=== PATIENT | female | born 1990 | race Caucasian/White ===

== ENCOUNTER 2018-02-05 12:02 | Outpatient (REF) | payer MEDICAID, SELFPAY ==
[2018-02-05 13:49] LABS: Bilirubin Negative (Negative); Blood Negative (Negative); Clarity Clear; Glucose Negative (Negative); Ketones Negative (Negative); Leukocyte Esterase Trace (Negative); Nitrite Negative (Negative); Urobilinogen 0.2 EU/dL (Up TO 0.2)
[2018-02-05 13:56] LABS: Bacteria Rare HPF (Negative); Epithelial Cells Few HPF (Negative); Other Cells Rare Transitional (Negative); RBC 0-2 (0-2)
[2018-02-05 13:57] LABS: C & S Indicated? No/Sq. Contamination; Casts Negative LPF (Negative); Crystals Negative HPF (Negative); Mucus Negative (Negative)
== END 2018-02-05 12:22 ==
LOC: LBN 12:02
DX: L30.1 Dyshidrosis [pompholyx] (principal)
CPT/HCPCS: 81003; 81015

== ENCOUNTER 2018-09-13 13:47 | Outpatient (REF) | payer MEDICAID, SELFPAY ==
--- NOTE | 2018-09-13 13:00 | PAPFT_PTH ---
PATIENT: Jessica Robertson LOC: N U#:[id number] AGE/SX: 27/F ROOM: RE09/13/[address]: YOLANDA Jerry : 1990 BED: DIS: 09/13/2018 SPEC #: [id number] RECD: 09/13/18 18:20 STATUS: RAJAT REVíctor #: [id number] LORE: 09/13/18 13:[address]: Irais Jj DEPT: [facility] Cytology RECD BY: Joleen Blanchard ENTERED: 09/13/18 18:20 SP TYPE: PAPFT MALLORY DR: Dalila Tinoco APRN Tissues: 1 - CX/ENDOCX FOR PAP SMEARS Procedures: PAP THIN PREP/UVM Screening Comments: [id number]
== END 2018-09-13 14:07 ==
LOC: LBN 13:47
PROVIDERS: Visit Provider Nurse Practitioner Family
DX: Z12.4 Encounter for screening for malignant neoplasm of cervix (principal)
CPT/HCPCS: 88142

== ENCOUNTER 2019-07-29 12:01 | Outpatient (CLI) | payer MEDICAID, SELFPAY ==
[2019-07-29 10:31] LABS: HCT 39.3 % (36.0-46.0); HGB 13.1 g/dL (12.0-15.5); Mean Corp. HGB Concentration 33.3 g/dL (32.0-36.0); Mean Corpuscular Hemoglobin 29.7 pg (27.0-33.0); Mean Corpuscular Volume 89.1 fL (80-95); Mean Platelet Volume 10.1 fL (8.0-11.0); Platelet Count 346 x1000/uL (130-400); RBC 4.41 m/cumm (4.00-5.20); RBC Distribution Width 12.5 % (11.7-14.6); White Blood Cell Count 5.15 k/cumm (4.4-10.8)
== END 2019-07-29 12:21 ==
PROVIDERS: Visit Provider Obstetrics & Gynecology
DX: Z30.2 Encounter for sterilization (principal); Z01.818 Encounter for other preprocedural examination; Z01.812 Encounter for preprocedural laboratory examination
CPT/HCPCS: 36415; 85027; 86850; 86900; 86901

== ENCOUNTER 2019-07-30 07:22 | Day surgery (SDC) | payer MEDICAID, SELFPAY ==
--- NOTE | 2019-07-29 21:13 | PDOC.ANES ---
Date of service: 07/29/19 Time of Service: 21:13 Anesthesia Note Report Anesthesia Note: Called to speak with Jessica in regards to possibly rescheduling her elective surgery. We discussed the ongoing martinez virus pandemic and steps we are taking at the hospital. This includes no visitor or support person will be allowed to stay in the hospital with her, and that the risk of being exposed or exposing others to the martinez virus although thought to be low is unknown. We discussed that if she did contract the martinez virus, her illness would likely be mild, although it could be life threatening. She verbalized understanding the risk and would like to proceed with surgery as scheduled.
[2019-07-30 07:33] VITALS: BP 109/68; PULSE 69; RESP 16; TEMP 37; O2SAT 97
== END 2019-07-30 07:42 ==
PROVIDERS: Visit Provider Obstetrics & Gynecology
DX: R69 Illness, unspecified (principal); Y66 Nonadministration of surgical and medical care

== ENCOUNTER 2019-10-03 03:05 | Outpatient (CLI) | payer MEDICAID, SELFPAY ==
[2019-10-03 13:32] LABS: HCT 35.9 % (36.0-46.0); Mean Corp. HGB Concentration 33.4 g/dL (32.0-36.0); Mean Corpuscular Hemoglobin 29.9 pg (27.0-33.0); Mean Corpuscular Volume 89.5 fL (80-95); Mean Platelet Volume 10.4 fL (8.0-11.0); Platelet Count 317 x1000/uL (130-400); RBC 4.01 m/cumm (4.00-5.20); RBC Distribution Width 12.3 % (11.7-14.6); White Blood Cell Count 5.41 k/cumm (4.4-10.8)
== END 2019-10-03 03:25 ==
PROVIDERS: Visit Provider Obstetrics & Gynecology
DX: Z30.2 Encounter for sterilization (principal); Z01.818 Encounter for other preprocedural examination; Z01.812 Encounter for preprocedural laboratory examination
CPT/HCPCS: 36415; 85027; 86850; 86900; 86901

== ENCOUNTER 2019-10-06 09:11 | Outpatient (CLI) | payer MEDICAID, SELFPAY ==
[2019-10-07 03:26] LABS: COVID-19 RT-PCR UVMMC Result Negative (Negative)
== END 2019-10-06 09:31 ==
PROVIDERS: Visit Provider Obstetrics & Gynecology
DX: Z11.59 Encounter for screening for other viral diseases (principal)
CPT/HCPCS: U0003

== ENCOUNTER 2019-10-09 06:11 | Day surgery (SDC) | payer MEDICAID, SELFPAY ==
[2019-10-09] VITALS (7 sets, daily range): BP systolic 84–113; BP diastolic 40–73; PULSE 62–74; RESP 16–20; TEMP 36.1–36.7; O2SAT 97–100
--- NOTE | 2019-10-09 07:09 | HPE_ITS ---
Date of service: 10/09/19 Time of Service: 07:09 Assessment and Plan Assessment and plan (1) Sterilization: Status: Acute Assessment and plan: Plan to proceed with laparoscopic bilateral salpingectomy under anesthesia. Risks of surgery including hemorrhage, infection and injury to other organs such as bowel bladder were discussed with the patient. The patient was counseled on the intended irreversibility of the procedure. All questions were answered to the patient's satisfaction and consent for surgery was obtained. History of Present Illness History of Present Illness Chief Complaint: Tubal sterilization Narrative: 28-year-old G2, P2 presents today for preoperative visit. She is scheduled to undergo laparoscopic bilateral salpingectomy. She has 2 children of her own and lives in a household with 4 children that belongs to her significant other. The patient has been counseled on alternative forms of contraception. She is generally healthy but has chronic migraines and is unable to take an estrogen containing contraceptive. Review of Systems All systems reviewed & are unremarkable except as noted in HPI and below PFSH Surgical History (Updated 10/09/19 @ 06:33 by Demetria Simpson) [place] teeth extracted (Acute) Social History (Updated 11/12/18 @ 14:07 by Kunal Noonan) Smoking/Tobacco Use Status: Current every day Tobacco Type: cigarettes Years smoked: 10 Quit status: has quit before Second Hand Exposure: No Alcohol Intake: current Alcohol Intake frequency: a few times a month Alcohol type: beer Drug use: Never Substance use type: does not use Details: alcohol: t-2, 2 beers Caregiver/Support person: No Household members: family and children Housing: house current occupation: [employer] Pets and animals: Yes Pets and animals: dog(s) Sexually active: Yes Do you think of yourself as: straight/heterosexual Current gender identity: female What is your relationship status?: How often do you talk on the phone with friends or family?: three or more times per week How often do you get together with friends or relatives?: three or more times per week How often do you attend methodist or nondenominational services?: decline to answer Do you belong to any clubs or organized social groups?: no Panel score (0-1 are the most socially isolated patients): 1 What type of physical activity do you participate in: walking Duration: > 90 minutes/day Frequency: 5-6 times per week Opal/Moravian: No preference Special opal needs: No Seatbelt use: always Helmet use: Yes Helmet use: always Drive intox or ride w/intox [employer] truck driver: No Water heater temp set <120 deg: Yes Working smoke detector in home: Yes Fire extinguisher in home: Yes Carbon monox detector in home: Yes Firearms in home: No Do you feel safe at home: Yes Do you feel safe in your relationship?: Yes Victim of physical abuse: No Victim of emotional abuse: No Victim of sexual abuse: No Meds Home Medications and Allergies Home Medications Medication Instructions Recorded Confirmed Type acyclovir 400 mg PO Q8H PRN #60 tab-cap 05/18/17 10/09/19 Rx multivitamin [Daily Multiple] 1 tab PO DAILY 06/14/17 10/09/19 History norelgestromin 150 mcg-e.estradiol 1 patch TRANSDERMAL weekly #12 09/03/18 10/09/19 Rx 35 mcg/24 hr weekly transderm patch patch loratadine 10 mg tablet 10 mg PO DAILY #30 tab-cap 01/17/19 10/09/19 Rx sertraline 50 mg tablet 50 mg PO DAILY #90 tab 05/17/19 10/09/19 Rx fluticasone propionate 50 mcg NS DAILY 10/03/19 10/09/19 History montelukast [Singulair] 10 mg PO DAILY 10/03/19 10/09/19 History Allergies Allergy/AdvReac Type Severity Reaction Status Date / Time No Known Drug Allergies Allergy Verified 10/09/19 06:29 tree nut Allergy diarrhea, Verified 10/09/19 06:29 vomiting Exam Resp Auscultation: clear to auscultation bilaterally Cardio Rate: regular rate Rhythm: regular rhythm Results Last Vital Signs Temp 98.1 F 10/09/19 06:33 Pulse 74 10/09/19 06:33 Resp 16 10/09/19 06:33 BP 113/73 10/09/19 06:33 Pulse Ox 97 10/09/19 06:33 COVID-19 Screening In the past 14 days, have you traveled outside of [place] or [place]?: NO
[2019-10-09] MEDS: Lactated Ringers 1,000 ML 125 ML IV (07:15)
--- NOTE | 2019-10-09 08:00 | FALL_PTH ---
PATIENT: Jessica Robertson LOC: [facility] U#:[id number] AGE/SX: 28/F ROOM: RE10/09/[address]: Alberto Ramos MD : 1990 BED: DIS: 10/09/2019 SPEC #: [id number] RECD: 10/09/19 11:58 STATUS: RAJAT REVíctor #: [id number] LORE: 10/09/19 08:[address]: Alberto Ramos DEPT: Surgical Specimen RECD BY: Joleen Blanchard ENTERED: 10/09/19 11:58 SP TYPE: Fall OTHR DR: Dalila Tinoco APRN Tissues: 1 - FALLOPIAN TUBE (STERILIZATION) 2 - FALLOPIAN TUBE (STERILIZATION) Procedures: GROSS AND MICRO LEVEL 2 Comments: [id number]
[2019-10-09] MEDS: Bupivacaine 0.25% Pres-Free 30 ML VIAL (08:10)
--- NOTE | 2019-10-09 08:30 | W.PM.OP ---
Date of service: 10/09/19 Time of Service: 08:30 Operative Note Operative Note DATE OF PROCEDURE: 10/09/19 PRE-OP DIAGNOSIS: Multiparity and desire for permanent sterilization POST-OP DIAGNOSIS: same PROCEDURE: Laparoscopic bilateral salpingectomy SURGEON: Alberto Ramos ASSISTING SURGEON: Lillie Bates ANESTHESIA: GETA ESTIMATED BLOOD LOSS: 10 PATHOLOGY: other (Bilateral fallopian tubes) COMPLICATIONS: None Patient was transported to: PACU Patient's condition: stable Procedure Description: The patient was taken to the operating room and after general anesthesia the patient was placed in supine position. The patient was prepped and draped in usual sterile manner. The skin and subcutaneous tissues at the umbilicus were infiltrated with 0.25% Marcaine solution. A small infraumbilical skin incision was then made with a #15 blade scalpel. Sharp dissection was carried down to the underlying layer fascia. The fascia was grasped and elevated with 2 Norm clamps. The fascia was incised with a scalpel and the peritoneum was entered sharply with hemostats. 2 sutures of 0 Vicryl were placed on either side of the fascial incision. A 10 mm balloon trocar was advanced through the incision. A pneumoperitoneum to approximately 15 mmHg was established with carbon dioxide. Two 5 mm ports were placed in the right and left lower quadrants both under direct visualization. The left fallopian tube was grasped and elevated with an atraumatic grasper. Dissection was carried across the mesosalpinx with the LigaSure device. The tube was transected at its proximal end and removed from the abdomen. A similar procedure was carried out on the opposite side. Excellent hemostasis was noted. The 5 mm trochars were removed. The abdomen was desufflated. The umbilical trocar was also removed. The fascia at the umbilicus was closed with a [id number] suture of 0 Vicryl in addition to the 2 previously placed sutures. Each skin incision was closed with interrupted sutures of 4-0 Monocryl and Dermabond was applied. The procedure was concluded at this point. Sponge, lap and needle counts were correct at the completion of the procedure. The patient was transferred to PACU in stable condition.
--- NOTE | 2019-10-09 08:38 | W.PM.DSUDISC ---
Discharge Plan Disposition Patient Disposition: HOME Condition: Good Discharge Details Reason For Visit: Status post laparoscopic bilateral salpingectomy Attending Provider: Alberto Ramos Primary Care Provider: Dalila Tinoco Home Meds and New Rx's Prescriptions: New hydrocodone-acetaminophen 5-325 mg Tablet 1 tab PO Q4H PRN Qty: 20 RF: 0 Continued acyclovir 400 MG tablet 400 mg PO Q8H PRN Qty: 60 RF: 2 Xulane 150-35 mcg/24 hr patch weekly 1 patch Transdermal weekly Qty: 12 RF: 3 loratadine 10 mg tablet 10 mg PO DAILY Qty: 30 RF: 11 sertraline 50 mg tablet 50 mg PO DAILY Qty: 90 RF: 3 multivitamin [Daily Multiple] 1 EACH tablet 1 tab PO DAILY RF: 0 montelukast [Singulair] 10 mg tablet 10 mg PO DAILY RF: 0 fluticasone propionate 50 mcg/actuation spray,suspension 50 mcg NS DAILY RF: 0 Discharge Instructions Activity:: Activity as Tolerated Shower/Bathe:: 24 hours Diet:: As Tolerated Discharge Orders Discharge Orders: Discharge Order (Routine); Ordered 10/09/19 Ordered By: Alberto Ramos DS: Diagnosis Discharge Diagnosis (1) Sterilization: Status: Acute
== END 2019-10-09 10:48 | disposition home or self-care (01) ==
PROVIDERS: Visit Provider Obstetrics & Gynecology
PROC: (CPT 58661; principal; 2019-10-09 07:30)
DX: Z30.2 Encounter for sterilization (principal)
CPT/HCPCS: 58661; 81025; 99223; 88302; J0131; J1100; J1885; J2001; J2250; J2405

== ENCOUNTER 2020-09-24 15:54 | Outpatient (REF) | payer MEDICAID, SELFPAY ==
--- NOTE | 2020-09-24 14:00 | PAPFT_PTH ---
PATIENT: Jessica Robertson LOC: [facility] U#:[id number] AGE/SX: 29/F ROOM: RE09/24/[address]: YOLANDA Jerry : 1990 BED: DIS: 09/24/2020 SPEC #: [id number] RECD: 09/24/20 16:32 STATUS: RAJAT REVíctor #: [id number] LORE: 09/24/20 14:[address]: Irais Jj DEPT: [facility] Cytology RECD BY: Joleen Blanchard ENTERED: 09/24/20 16:32 SP TYPE: PAPFT OTHR DR: Dalila Tinoco APRN Tissues: 1 - CX/ENDOCX FOR PAP SMEARS Procedures: PAP THIN PREP/UVM Screening Comments: [id number]
== END 2020-09-24 15:55 | disposition home or self-care (01) ==
LOC: LBN 15:54
PROVIDERS: Visit Provider Nurse Practitioner Family
DX: Z12.4 Encounter for screening for malignant neoplasm of cervix (principal); R87.612 Low grade squamous intraepithelial lesion on cytologic smear of cervix (LGSIL)
CPT/HCPCS: 88142

== ENCOUNTER 2020-10-08 17:17 | Outpatient (REF) | payer MEDICAID, SELFPAY ==
--- NOTE | 2020-10-08 15:20 | CER_PTH ---
PATIENT: Jessica Robertson LOC: N U#:[id number] AGE/SX: 29/F ROOM: RE10/08/[address]: Ally Villeda DO : 1990 BED: DIS: 10/08/2020 SPEC #: [id number] RECD: 10/08/20 17:30 STATUS: RAJAT RE #: [id number] LORE: 10/08/20 15:[address]: Ally Villeda DEPT: Surgical Specimen RECD BY: Joleen Blanchard ENTERED: 10/08/20 17:31 SP TYPE: PARUL TEJADA DR: Dalila Tinoco APRN Tissues: 1 - CERVICAL BIOPSY 2 - ENDOCERVICAL BX/CURRETTE Procedures: GROSS AND MICRO LEVEL 4 Comments: [id number]
== END 2020-10-08 17:18 | disposition home or self-care (01) ==
LOC: LBN 17:17
PROVIDERS: Visit Provider Obstetrics & Gynecology
DX: R87.612 Low grade squamous intraepithelial lesion on cytologic smear of cervix (LGSIL) (principal); N87.9 Dysplasia of cervix uteri, unspecified
CPT/HCPCS: 88305

== ENCOUNTER 2022-07-16 17:10 | Emergency (ER) | payer MEDICAID, SELFPAY ==
[2022-07-16 17:12] VITALS: BP 122/69; PULSE 70; RESP 16; TEMP 36.1; O2SAT 98
[2022-07-16 17:26] LABS: Clarity Cloudy (Clear)
[2022-07-16 17:27] LABS: Specific Gravity 1.024 (1.005-1.025)
[2022-07-16 17:34] LABS: WBC >50 HPF (0-5)
[2022-07-16 17:35] LABS: Bacteria Few HPF (Negative); C & S Indicated? Yes; Crystals Negative HPF (Negative); Epithelial Cells Rare HPF (Negative); Mucus Trace (Negative)
--- NOTE | 2022-07-16 17:40 | W.ED.GENAD ---
Discharge Plan Disposition Patient Disposition: Home Discharge Details Clinical Impression: Urinary tract infection Primary Care Provider: Bhupinder Ko ED Provider: Ananth Villagomez Home Meds and New Rx's Prescriptions: New cefpodoxime 100 mg tablet 100 mg PO BID 5 Days Qty: 10 0RF Rx Instructions: must administer with a meal/food No Action ibuprofen 600 mg tablet 600 mg PO Q6H PRN (Reason: pain) Qty: 30 5RF acyclovir 400 mg tablet 400 mg PO Q8H PRN Qty: 60 2RF Rx Instructions: Take 1 tablet TID for 5 days starting at first prodromal symptom sertraline 100 mg tablet See Rx Instructions .ROUTE .COMPLEX Qty: 90 3RF Dose Instruction: TAKE ONE TABLET BY MOUTH EVERY DAY Rx Instructions: TAKE ONE TABLET BY MOUTH EVERY DAY montelukast [Singulair] 10 mg tablet 10 mg PO DAILY Qty: 90 3RF loratadine 10 mg tablet 10 mg PO DAILY Qty: 90 3RF multivitamin [Daily Multiple] 1 EACH tablet 1 tab PO DAILY Discharge Instructions Instructions: Urinary Tract Infection in Women (ED) Additional Instructions: Please follow-up with your primary care physician. Please follow-up with women's health as needed. Medical Decision Making 31-year-old female presents with dysuria and urinary frequency. Initial urinalysis negative however microscopy positive for likely urinary tract infection. Low suspicion for pyelonephritis. Patient had her tubes tied will cancel POC urine . Will treat empirically with oral antibiotics. Home care instructions and return precautions given HPI General Date/Time Provider Initiated Documentation: 07/16/22 17:25. HPI Narrative: 31-year-old female presents with dysuria urinary frequency over the past several days. Denies vaginal bleeding or vaginal discharge. No nausea or vomiting. Does have mild headache. Related Data Home Medications Medication Instructions Recorded Confirmed multivitamin (Daily Multiple 1 tab PO DAILY 06/14/17 06/14/22 tablet) acyclovir 400 mg tablet 400 mg PO Q8H PRN #60 tab-caps 08/03/20 06/14/22 ibuprofen 600 mg tablet 600 mg PO Q6H PRN pain #30 tabs 09/24/20 06/14/22 sertraline 100 mg tablet See Rx Instructions .Route 04/18/22 06/14/22 .COMPLEX #90 tabs loratadine 10 mg tablet 10 mg PO DAILY #90 tab-caps 05/12/22 06/14/22 montelukast 10 mg tablet 10 mg PO DAILY #90 tabs 05/12/22 06/14/22 (Singulair) cefpodoxime 100 mg tablet 100 mg PO BID 5 days #10 tabs 07/16/22 Previous Rx's Medication Instructions Recorded acyclovir 400 mg tablet 400 mg PO Q8H PRN #60 tab-caps 08/03/20 ibuprofen 600 mg tablet 600 mg PO Q6H PRN pain #30 tabs 09/24/20 sertraline 100 mg tablet See Rx Instructions .Route 04/18/22 .COMPLEX #90 tabs loratadine 10 mg tablet 10 mg PO DAILY #90 tab-caps 05/12/22 montelukast 10 mg tablet 10 mg PO DAILY #90 tabs 05/12/22 (Singulair) cefpodoxime 100 mg tablet 100 mg PO BID 5 days #10 tabs 07/16/22 Allergies Allergy/AdvReac Type Severity Reaction Status Date / Time tree nut Allergy diarrhea, Verified 06/14/22 11:35 vomiting General Stated Complaint: Urinary DUARTE: 4 Review of Systems Narrative: Review of Systems Constitutional: negative Eyes: negative ENT: negative Cardiovascular: negative Respiratory: negative Gastrointestinal: negative : Dysuria urinary frequency Musculoskeletal: negative Skin: negative Neurologic: negative Psych: negative PFSH All Active Problems (Updated 07/16/22 @ 17:43 by Ananth Villagomez MD) Chronic nonintractable headache (Acute 12/26/17) HSV infection (Acute 04/13/17) Mild anxiety (Acute 09/12/16) Seasonal allergic rhinitis (Acute 12/26/17) Physical exam (Acute) Screening cholesterol level (Acute) Knee pain, right (Acute) Nerve compression (Acute) Shoulder region pain (Acute) Skin lesions (Acute) Family history of melanoma (Acute) Urinary tract infection (Acute) Surgical History (Updated 06/15/21 @ 10:53 by Kamini Apodaca NP) Status post bilateral salpingectomy [place] teeth extracted Family History Mother Breast cancer Melanoma Father Alcohol abuse Brother No problems noted. Brother Alcohol abuse Depression Maternal Grandfather Heart disease Stroke Paternal Grandfather No problems noted. Social History Smoking/Tobacco Use Status: Former Tobacco Use Quit status: has quit before Second Hand Exposure: Yes Smoking risk assessment performed?: Yes Alcohol Intake: current Alcohol Intake frequency: a few times a week Alcohol type: beer Drug use: Never Substance use type: does not use Details: alcohol: t-2, 2 beers Caregiver/Support person: No Household members: spouse and children Housing: house Communication Needs: None Do you need help understanding health information?: Rarely current occupation: [employer] Pets and animals: Yes Pets and animals: dog(s) Sexually active: Yes Do you think of yourself as: straight/heterosexual Current gender identity: female What is your relationship status?: living with partner How often do you talk on the phone with friends or family?: three or more times per week How often do you get together with friends or relatives?: three or more times per week How often do you attend zoroastrianism or episcopalian services?: decline to answer Do you belong to any clubs or organized social groups?: yes Panel score (0-1 are the most socially isolated patients): 3 What type of physical activity do you participate in: decline to answer Duration: decline to answer Frequency: decline to answer Opal/Moravian: No preference Special opal needs: No Seatbelt use: always Helmet use: Yes Helmet use: always Drive intox or ride w/intox local driver: No Water heater temp set <120 deg: Yes Working smoke detector in home: Yes Fire extinguisher in home: Yes Carbon monox detector in home: Yes Firearms in home: No Do you feel safe at home: Yes Do you feel safe in your relationship?: Yes Victim of physical abuse: No Victim of emotional abuse: No Victim of sexual abuse: No Exam Narrative Exam Narrative: Physical Examination General: alert, awake, cooperative, resting comfortably, no acute distress HEENT: normocephalic, atraumatic; PERRL, EOM intact, conjunctiva normal; no nasal discharge; moist mucous membranes, oral and pharyngeal mucosa normal, tolerating secretions Neck: supple, trachea midline; full ROM Respiratory: normal respiratory effort, speaking in full sentences Skin: no lesions, rashes or trauma appreciated Neuro: AAOx3, normal speech, moving all extremities Psych: Appropriate mood and affect Course Vital Signs Vital signs: Vital Signs Temperature 36.1 C L 07/16/22 17:12 Pulse 70 07/16/22 17:12 Respiratory Rate 16 07/16/22 17:12 Blood Pressure 122/69 07/16/22 17:12 Pulse Oximetry 98 07/16/22 17:12 Temperature 36.1 C L 07/16/22 17:12 Temperature Source Tympanic 07/16/22 17:12 Pulse 70 07/16/22 17:12 Respiratory Rate 16 07/16/22 17:12 Respiratory Effort Normal 07/16/22 17:16 Blood Pressure 122/69 07/16/22 17:12 Blood Pressure Position Sitting 07/16/22 17:12 Pulse Oximetry 98 07/16/22 17:12 Oxygen Delivery Method Room Air 07/16/22 17:12 Oxygen Flow Rate 0 07/16/22 17:12 Pain Level 7 07/16/22 17:12 Lab/Test Results Lab/Test Results: 07/16/22 17:20 Urine - Reflex from Ua Urine Culture - Pending Laboratory Tests Range/Units 07/16/22 17:20 Urine Color (Yellow) [place] Urine Clarity (Clear) Cloudy Urine pH (5-8) Ur Specific [place] (1.005-1.025) 1.024 Urine Protein (Negative) mg/dL Urine Ketones (Negative) mg/dL Urine Blood (Negative) Urine Nitrite (Negative) Urine Bilirubin (Negative) Urine Urobilinogen (Up to 0.2) mg/dL Ur Leukocyte Esterase (Negative) Urine RBC (0-2) HPF 5-10 H Urine WBC (0-5) HPF >50 H Ur Epithelial Cells (Negative) HPF Rare Urine Crystals (Negative) HPF Negative Urine Bacteria (Negative) HPF Few Urine Mucus (Negative) Trace Ur Culture Indicated? Yes Urine Glucose (Negative) mg/dL PAWSS Have you Been Recently Intoxicated or Drunk Within the Last 30 days?: No Have you Ever Experienced Previous Episodes of Alcohol Withdrawal?: No Have you ever Experienced Withdrawal Seizures?: No Have you ever Experienced Delirium Tremens(DT)s?: No Have you ever undergone Alcohol Rehabilitation Treatment (i.e, inpt ot outpatient treatment programs)?: No Have you ever Experienced Blackouts?: No Have you ever Combined Alcohol with other Downers within the last 90 days?: No Have you ever Combined Alcohol with any other Substance of Abuse during the last 90 days?: No Positive Blood Alcohol level on Presentation? [PCS.BAL]: No Evidence of Increased Autonomic Activity (i.e. HR>120, tremor, sweating, agitation, nausea)?: No Result: 0
[2022-07-16] MEDS: Cefpodoxime 200 MG TAB 100 MG PO (17:52)
== END 2022-07-16 18:04 | disposition home or self-care (01) ==
PROVIDERS: Emergency Provider Emergency Medicine; PCP Nurse Practitioner Family
DX: N39.0 Urinary tract infection, site not specified (principal)
CPT/HCPCS: 99283; 81003; 81015; 87086

== ENCOUNTER 2022-12-12 13:30 | Outpatient (REF) | payer SELFPAY | END 2022-12-12 13:31 | disposition home or self-care (01) | LOC: LBN 13:30 | PROVIDERS: PCP Nurse Practitioner Family; Visit Provider Physician Assistant Medical | DX: N39.0 Urinary tract infection, site not specified (principal) | CPT/HCPCS: 87086 ==

== ENCOUNTER 2023-09-19 12:02 | Outpatient (REF) | payer SELFPAY ==
--- NOTE | 2023-09-19 11:15 | PAPFT_PTH ---
PATIENT: Jesscia Robertson LOC: [facility] U#:[id number] AGE/SX: 32/F ROOM: RE09/19/[address]: Bhupinder Guillen DNP : 1990 BED: DIS: 09/19/2023 SPEC #: [id number] RECD: 09/19/23 12:36 STATUS: RAJAT REVíctor #: [id number] LORE: 09/19/23 11:[address]: Bhupinder Ko DEPT: [facility] Cytology RECD BY: Joleen Blanchard Tissues: 1 - CX/ENDOCX FOR PAP SMEARS Procedures: PAP THIN PREP/UVM Screening HPV DNA PROBE Comments: [id number]
== END 2023-09-19 12:03 | disposition home or self-care (01) ==
LOC: LBN 12:02
PROVIDERS: PCP Nurse Practitioner Family; Visit Provider Nurse Practitioner Family
DX: Z12.4 Encounter for screening for malignant neoplasm of cervix (principal); Z72.51 High risk heterosexual behavior
CPT/HCPCS: 88142; 87624

== ENCOUNTER 2024-09-10 11:38 | Outpatient (REF) | payer MEDICAID, SELFPAY | END 2024-09-10 11:39 | disposition home or self-care (01) | LOC: LBN 11:38 | PROVIDERS: PCP Nurse Practitioner Family; Visit Provider Nurse Practitioner Women's Health | DX: N76.0 Acute vaginitis (principal) | CPT/HCPCS: 87480; 87510; 87660 ==

== ENCOUNTER 2024-09-10 12:26 | Outpatient (CLI) | payer MEDICAID, SELFPAY ==
[2024-09-10 13:06] LABS: TSH (W/Ref FT4) 1.54 uIU/mL (0.36-3.74)
== END 2024-09-10 12:27 | disposition home or self-care (01) ==
LOC: LBO 12:26
PROVIDERS: PCP Nurse Practitioner Family; Visit Provider Nurse Practitioner Women's Health
DX: N92.6 Irregular menstruation, unspecified (principal)
CPT/HCPCS: 36415; 84443

== ENCOUNTER 2025-02-10 10:01 | Outpatient (CLI) | payer MEDICAID, SELFPAY ==
[2025-02-10 14:15] LABS: Abs Immature Grans 0.00 10^3/uL (0.0-0.06); HCT 36.3 % (36.0-46.0); HGB 12.1 g/dL (11.2-15.7); Immature Grans % 0.0 %; MCH 30.2 pg (27.0-33.0); MCHC 33.3 % (32.0-36.0); MCV 91 fL (80-95); MPV 10.7 fL (8.0-11.0); Platelet Count 298 10^3/uL (130-400); RBC 4.01 10^6/uL (3.93-5.22); RDW 11.9 % (11.7-14.6); RDW-SD 39.2 fL; WBC 4.21 10^3/uL (4.4-10.8)
== END 2025-02-10 10:02 | disposition home or self-care (01) ==
LOC: LOS 10:01
PROVIDERS: PCP Nurse Practitioner Family; Referring Provider Nurse Practitioner Family; Visit Provider Nurse Practitioner Family
DX: D72.819 Decreased white blood cell count, unspecified (principal)
CPT/HCPCS: 36415; 85025

== ENCOUNTER 2025-03-09 03:22 | Outpatient (CLI) | payer MEDICAID, SELFPAY ==
--- NOTE | 2025-03-09 07:15 | DI.MRI_ITS ---
Exam(s) MR BRAIN WO EXAM: MR BRAIN WO CLINICAL HISTORY: worsening VERTIGO,NONINTRACTABLE HEADACHE,R42,R51 TECHNIQUE: Multiplanar multisequence MRI of the brain was performed. COMPARISON: No exams were available for comparison FINDINGS: VENTRICLES AND EXTRA AXIAL SPACES: Normal in size and morphology for the patient's age. MIDLINE SHIFT: None. CEREBRAL PARENCHYMA: No focus of restricted diffusion to suggest acute infarct. No space-occupying lesion identified. HEMORRHAGE: None. BRAINSTEM/CEREBELLUM: Normal. CALVARIUM: Normal. VISUALIZED PARANASAL SINUSES/MASTOIDS:Clear. [place]: Normal flow void. PITUITARY GLAND: Unremarkable. OTHER FINDINGS: None. IMPRESSION: Unremarkable MRI of the brain. DATA REPOSITORY:
== END 2025-03-09 03:42 ==
LOC: DI 03:22
PROVIDERS: PCP Nurse Practitioner Family; Visit Provider Nurse Practitioner Family
DX: R42 Dizziness and giddiness (principal); R51.9 Headache, unspecified
CPT/HCPCS: 70551